=== PATIENT | female | born 1950 | race Caucasian/White ===

== ENCOUNTER → 2017-09-17 | Outpatient (CLI) | payer MEDICARE ==
[~2017-09-17] MED LIST: ASPI-496 PO; BUSP10TA PO; CALC1CAP8 PO; CEPH-368 PO; CHOL40002 PO; CITA40TA5 PO; CYAN50008 PO; CYCL-259 PO; FLUT50DI NAS; FURO20TA3 PO; GABA600T2 PO; GLUC-149 PO; HYDR-3245 PO; HYDR-3307 PO; LEVO75TA5 PO; MULT-658 PO; MULT-706 PO; OMEP-110 PO; TRAZ50TA18 PO
[2017-09-17 10:08] LABS: HEMATOCRIT 40.8 % (34.6-47.8); HEMOGLOBIN 13.7 g/dL (11.7-16.4); WHITE BLOOD COUNT 7.9 x10^3/uL (3.4-10)
[2017-09-17 10:21] LABS: ASPARTATE AMINO TRANSFERASE 22 U/L (15-37); BLOOD UREA NITROGEN 13 mg/dL (7-18)
== END | disposition home or self-care (01) ==
LOC: STAR 08:44
PROVIDERS: ATTEND Neurological Surgery
DX: Z01.818 Encounter for other preprocedural examination (principal); R94.31 Abnormal electrocardiogram [ECG] [EKG]; M47.896 Other spondylosis, lumbar region; R79.1 Abnormal coagulation profile
CPT/HCPCS: 36415; 71020; 80053; 81001; 85025; 85610; 85730; 87086; 93005

== ENCOUNTER 2017-09-27 05:45 | Inpatient (IN) | payer MEDICARE ==
[~2017-09-27] VITALS: Ht 160 cm; Wt 122.1 kg
[2017-09-27] MEDS ORDERED: BUPIVACAINE/PF 0.5% ONE (06:26)
[2017-09-27] MEDS ORDERED: BUPIVACAINE 0.25% ONE (06:26)
[2017-09-27] MEDS ORDERED: BACITRACIN 50,000 UNIT ONE (06:27)
[2017-09-27] MEDS ORDERED: THROMBIN 5,000 UNIT VIAL TP ONE (06:27)
[2017-09-27] MEDS ORDERED: EPINEPHRINE 1 MG/ML, 1ML ONE (06:27)
[2017-09-27] MEDS ORDERED: LACTATED RINGERS 1,000 ML IV SCH (06:38)
[2017-09-27] MEDS ORDERED: KETAMINE 10 MG/ML, 20ML ONE (07:19)
[2017-09-27] MEDS ORDERED: FENTANYL PF 250 MCG/5ML ONE (07:20)
[2017-09-27] MEDS ORDERED: MIDAZOLAM 1 MG/ML, 2ML ONE (07:20)
[2017-09-27] MEDS ORDERED: LIDOCAINE GEL 2%, 5ML ONE (07:20)
[2017-09-27] MEDS ORDERED: PROPOFOL 10 MG/ML, 20ML ONE (07:24)
[2017-09-27] MEDS ORDERED: ONDANSETRON 2MG/ML, 2ML ONE (07:24)
[2017-09-27] MEDS ORDERED: LIDOCAINE-MPF 2% ,5ML ONE (07:24)
[2017-09-27] MEDS ORDERED: DEXAMETHASONE 4 MG/ML, 1ML ONE (07:24)
[2017-09-27] MEDS ORDERED: CEFAZOLIN 1,000 MG ONE (07:24)
[2017-09-27] MEDS ORDERED: SUCCINYLCHOLINE 20 MG/ML, 10ML ONE (07:24)
[2017-09-27] MEDS ORDERED: PHENYLEPHRINE 10 MG/ML ONE (08:01)
[2017-09-27] MEDS ORDERED: ROCURONIUM 10 MG/ML,10ML ONE (08:01)
[2017-09-27] MEDS ORDERED: hydrALAzine 20 MG/ML, 1ML IV PRN (08:30)
[2017-09-27] MEDS ORDERED: DIAZEPAM 5 MG/ML, 2ML IVPush PRN (08:30)
[2017-09-27] MEDS ORDERED: LORazepam 2 MG/ML, 1ML IVPush PRN (08:30)
[2017-09-27] MEDS ORDERED: ALBUTEROL/IPRATROPIUM 2.5MG/0.5MG, 3 ML NPPB PRN (08:30)
[2017-09-27] MEDS ORDERED: MIDAZOLAM 1 MG/ML, 2ML IV PRN (08:30)
[2017-09-27] MEDS ORDERED: LABETALOL 5MG/ML, 20ML IV PRN (08:30)
[2017-09-27] MEDS ORDERED: FENTANYL PF 100 MCG/2ML IV PRN (08:30)
[2017-09-27] MEDS ORDERED: MEPERIDINE/PF 25MG/0.5ML IVPush PRN (08:30)
[2017-09-27] MEDS ORDERED: OXYcodone 5 MG/5 ML ORAL.SOL UDC PO PRN (08:30)
[2017-09-27] MEDS ORDERED: ONDANSETRON 2MG/ML, 2ML IVPush PRN (08:30)
[2017-09-27] MEDS ORDERED: PROMETHAZINE 25 MG/ML, 1ML IV PRN (08:30)
[2017-09-27] MEDS ORDERED: ACETAMINOPHEN 325 MG TABLET PO PRN (08:30)
[2017-09-27] MEDS ORDERED: FENTANYL PF 100 MCG/2ML ONE (08:58)
[2017-09-27] MEDS ORDERED: FENTANYL PF 100 MCG/2ML EPIDPUSH ONE (09:00)
[2017-09-27] MEDS ORDERED: PROMETHAZINE 25 MG/ML, 1ML IM PRN (10:00)
[2017-09-27] MEDS ORDERED: PHARMACY MAY ADJ FOR RENAL FX MC PRN (10:00)
[2017-09-27] MEDS ORDERED: OXYcodone/APAP 5/325MG TABLET PO PRN (10:00)
[2017-09-27] MEDS ORDERED: BISACODYL 10 MG SUPP PR PRN (10:00)
[2017-09-27] MEDS ORDERED: morphine SULFATE 10 MG/ML, 1ML IVPush PRN (10:00)
[2017-09-27] MEDS ORDERED: SENNA/DOCUSATE TABLET PO PRN (10:00)
[2017-09-27] MEDS ORDERED: DIPHENHYDRAMINE 50 MG/ML, 1ML IVPush PRN (10:00)
[2017-09-27] MEDS ORDERED: HYDROmorphone 2 MG/ML, 1ML ONE (10:19)
[2017-09-27] MEDS ORDERED: OXYcodone 5 MG/5 ML ORAL.SOL UDC ONE (10:19)
[2017-09-27] MEDS ORDERED: ACETAMINOPHEN 650 MG/20.3 ML UDC ONE (10:19)
[2017-09-27] MEDS: HYDROmorphone 1 MG/ML, 1ML IV PRN ×2 (10:24→10:36)
[2017-09-27] MEDS: D5%-0.9% NACL+KCL 20MEQ 1,000 ML IV SCH (13:16)
[2017-09-27] MEDS: HYDROcodone/APAP 10/325 MG TABLET PO PRN ×3 (14:29→22:33)
[2017-09-27 15:09] VITALS: BP 126/65
[2017-09-27] MEDS: CEFAZOLIN PMX 1GM/50ML 50 ML IVPB SCH ×2 (16:46→23:55)
[2017-09-27] MEDS: GABAPENTIN 300 MG CAPSULE PO SCH ×2 (16:46→20:19)
[2017-09-27] MEDS: BUSPIRONE 10 MG TABLET PO SCH ×2 (16:46→21:55)
[2017-09-27] MEDS: CYCLOBENZAPRINE 10 MG TABLET PO PRN (16:57)
[2017-09-27 20:00] VITALS: BP 117/62
[2017-09-27] MEDS: TRAZODONE 50MG TABLET PO SCH (20:18)
[2017-09-27] MEDS: SODIUM CHLORIDE FLUSH 10ML SYR IVF SCH (20:19)
[2017-09-27] MEDS: FUROSEMIDE 20 MG TABLET PO SCH (20:19)
[2017-09-27] MEDS: OMEPRAZOLE 20 MG CAPSULE.DR PO SCH (20:19)
[2017-09-27 23:58] VITALS: BP 106/67
[2017-09-28] MEDS: CYCLOBENZAPRINE 10 MG TABLET PO PRN ×3 (01:14→17:06)
[2017-09-28] MEDS: D5%-0.9% NACL+KCL 20MEQ 1,000 ML IV SCH ×2 (01:52→12:40)
[2017-09-28 01:55] VITALS: BP 111/48
[2017-09-28] MEDS: HYDROcodone/APAP 10/325 MG TABLET PO PRN ×5 (03:06→20:00)
[2017-09-28 07:05] VITALS: BP 116/55
[2017-09-28] MEDS: LEVOTHYROXINE 75 MCG TABLET PO SCH (08:13)
[2017-09-28] MEDS: BUSPIRONE 10 MG TABLET PO SCH ×3 (08:13→20:01)
[2017-09-28] MEDS: GABAPENTIN 300 MG CAPSULE PO SCH ×3 (08:13→20:00)
[2017-09-28] MEDS: CITALOPRAM 20 MG TABLET PO SCH (08:13)
[2017-09-28] MEDS: OMEPRAZOLE 20 MG CAPSULE.DR PO SCH ×2 (08:14→20:00)
[2017-09-28] MEDS: FUROSEMIDE 20 MG TABLET PO SCH ×2 (08:14→20:01)
[2017-09-28] MEDS: SODIUM CHLORIDE FLUSH 10ML SYR IVF SCH ×2 (08:14→20:02)
[2017-09-28] MEDS: FLUTICASONE NASAL SPRAY 16GM NAS SCH (08:17)
[2017-09-28] MEDS ORDERED: FLUTICASONE PROPIONATE NAS SCH (09:00)
[2017-09-28 15:37] VITALS: BP 120/77
[2017-09-28] MEDS: ONDANSETRON 2MG/ML, 2ML IVPush PRN (16:06)
[2017-09-28 19:10] VITALS: BP 135/84
[2017-09-28] MEDS: TRAZODONE 50MG TABLET PO SCH (20:01)
[2017-09-29 00:34] VITALS: BP 141/84
[2017-09-29] MEDS: D5%-0.9% NACL+KCL 20MEQ 1,000 ML IV SCH ×2 (02:00→14:48)
[2017-09-29 02:42] VITALS: BP 141/84
[2017-09-29] MEDS: HYDROcodone/APAP 10/325 MG TABLET PO PRN ×3 (05:33→16:17)
[2017-09-29 06:53] VITALS: BP 114/74
[2017-09-29] MEDS: FLUTICASONE NASAL SPRAY 16GM NAS SCH (08:13)
[2017-09-29] MEDS: CITALOPRAM 20 MG TABLET PO SCH (08:13)
[2017-09-29] MEDS: GABAPENTIN 300 MG CAPSULE PO SCH ×3 (08:13→21:46)
[2017-09-29] MEDS: LEVOTHYROXINE 75 MCG TABLET PO SCH (08:13)
[2017-09-29] MEDS: OMEPRAZOLE 20 MG CAPSULE.DR PO SCH ×2 (08:13→21:46)
[2017-09-29] MEDS: BUSPIRONE 10 MG TABLET PO SCH ×3 (08:13→21:46)
[2017-09-29] MEDS: FUROSEMIDE 20 MG TABLET PO SCH ×2 (08:13→21:46)
[2017-09-29] MEDS: CYCLOBENZAPRINE 10 MG TABLET PO PRN (08:16)
[2017-09-29] MEDS: SODIUM CHLORIDE FLUSH 10ML SYR IVF SCH ×2 (08:16→21:47)
[2017-09-29] MEDS ORDERED: BUTALB/APAP/CAFFEINE 50MG/325MG/40MG PO PRN (09:00)
[2017-09-29 14:57] VITALS: BP 116/75
[2017-09-29 21:09] VITALS: BP 137/83
[2017-09-29] MEDS: TRAZODONE 50MG TABLET PO SCH (21:46)
[2017-09-30] MEDS: ONDANSETRON 2MG/ML, 2ML IVPush PRN ×2 (00:19→07:45)
[2017-09-30 03:34] VITALS: BP 145/84
[2017-09-30] MEDS: D5%-0.9% NACL+KCL 20MEQ 1,000 ML IV SCH ×3 (04:40→19:16)
[2017-09-30 06:44] VITALS: BP 143/83
[2017-09-30] MEDS: FUROSEMIDE 20 MG TABLET PO SCH ×2 (07:46→20:21)
[2017-09-30] MEDS: GABAPENTIN 300 MG CAPSULE PO SCH ×3 (07:46→20:21)
[2017-09-30] MEDS: FLUTICASONE NASAL SPRAY 16GM NAS SCH (07:46)
[2017-09-30] MEDS: HYDROcodone/APAP 5/325 TABLET PO PRN ×5 (07:47→21:55)
[2017-09-30] MEDS: LEVOTHYROXINE 75 MCG TABLET PO SCH (07:47)
[2017-09-30] MEDS: CITALOPRAM 20 MG TABLET PO SCH (07:47)
[2017-09-30] MEDS: OMEPRAZOLE 20 MG CAPSULE.DR PO SCH ×2 (07:47→20:20)
[2017-09-30] MEDS: BUSPIRONE 10 MG TABLET PO SCH ×3 (07:47→20:20)
[2017-09-30] MEDS: SODIUM CHLORIDE FLUSH 10ML SYR IVF SCH ×2 (07:49→20:22)
[2017-09-30] MEDS ORDERED: SCOPOLAMINE 1MG PATCH TD ONE (09:00)
[2017-09-30] MEDS ORDERED: SCOPOLAMINE PATCH, 1.5MG PATCH.TD72 TD ONE (09:00)
[2017-09-30] MEDS: ENOXAPARIN 40 MG/0.4 ML SQ SCH (09:43)
[2017-09-30 10:03] LABS: BASOPHILS # (AUTO) 0.06 x10^3/uL (0-0.1); BASOPHILS % (AUTO) 1 % (0-1); EOSINOPHILS # (AUTO) 0.03 x10^3/uL (0-0.4); EOSINOPHILS % (AUTO) 0 % (1-7); LYMPHOCYTES # (AUTO) 2.37 x10^3/uL (1-3.4); LYMPHOCYTES % (AUTO) 20 % (22-44); MD NO; MEAN CORPUSCULAR HEMOGLOBIN 29.8 pg (27.0-34.8); MEAN CORPUSCULAR HGB CONC 33.3 g/dL (32.4-35.8); MEAN CORPUSCULAR VOLUME 89.4 fL (80-100); MEAN PLATELET VOLUME 8.2 fL (7.4-10.4); MONOCYTES # (AUTO) 0.82 x10^3/uL (0.2-0.8); MONOCYTES % (AUTO) 7 % (2-9); NEUTROPHILS # (AUTO) 8.31 x10^3/uL (1.8-6.8); NEUTROPHILS % (AUTO) 72 % (42-75); PLATELET COUNT 211 x10^3/uL (130-400); RED CELL DISTRIBUTION WIDTH 13.6 % (9.6-15.2)
[2017-09-30 10:13] LABS: ANION GAP 6 mmol/L (5-15); CALCIUM 8.5 mg/dL (8.5-10.1); CHLORIDE 101 mmol/L (98-107); CREATININE 0.89 mg/dL (0.55-1.02)
[2017-09-30 10:28] LABS: CLOSTRIDIUM DIFFICILE ANTIGEN NEGATIVE; CLOSTRIDIUM DIFFICILE TOXIN NEGATIVE (Negative)
[2017-09-30] MEDS: CYCLOBENZAPRINE 10 MG TABLET PO PRN ×2 (12:42→21:55)
[2017-09-30 13:21] VITALS: BP 123/77
[2017-09-30] MEDS: TRAZODONE 50MG TABLET PO SCH (20:21)
[2017-09-30 20:26] VITALS: BP 138/84
[2017-10-01 02:15] VITALS: BP 129/76
[2017-10-01] MEDS: HYDROcodone/APAP 5/325 TABLET PO PRN ×5 (03:15→22:01)
[2017-10-01] MEDS: CYCLOBENZAPRINE 10 MG TABLET PO PRN ×2 (07:10→16:56)
[2017-10-01 07:15] VITALS: BP 137/81
[2017-10-01] MEDS: BUSPIRONE 10 MG TABLET PO SCH ×3 (07:57→22:03)
[2017-10-01] MEDS: FUROSEMIDE 20 MG TABLET PO SCH ×2 (07:57→16:57)
[2017-10-01] MEDS: OMEPRAZOLE 20 MG CAPSULE.DR PO SCH ×2 (07:58→22:04)
[2017-10-01] MEDS: LEVOTHYROXINE 75 MCG TABLET PO SCH (07:58)
[2017-10-01] MEDS: CITALOPRAM 20 MG TABLET PO SCH (07:58)
[2017-10-01] MEDS: GABAPENTIN 300 MG CAPSULE PO SCH ×3 (07:58→22:04)
[2017-10-01] MEDS: ENOXAPARIN 40 MG/0.4 ML SQ SCH (09:52)
[2017-10-01] MEDS: SODIUM CHLORIDE FLUSH 10ML SYR IVF SCH ×2 (09:53→22:03)
[2017-10-01 09:55] VITALS: BP 119/71
[2017-10-01 14:51] VITALS: BP 120/57
[2017-10-01] MEDS ORDERED: ENOX40SY4 SQ (16:19)
[2017-10-01] MEDS ORDERED: BISA10SU54 PR (16:21)
[2017-10-01] MEDS ORDERED: BUTA-177 PO (16:22)
[2017-10-01] MEDS ORDERED: CYCL5TAB PO (16:24)
[2017-10-01] MEDS ORDERED: HYDR-3237 PO (16:26)
[2017-10-01] MEDS ORDERED: ONDA4TAB7 IVPush (16:27)
[2017-10-01] MEDS ORDERED: SENN1TAB7 PO (16:29)
[2017-10-01] MEDS ORDERED: CLON0.1T PO (16:30)
[2017-10-01] MEDS ORDERED: SCOP1PAT TD (16:31)
[2017-10-01 19:42] VITALS: BP 119/45
[2017-10-01] MEDS: D5%-0.9% NACL+KCL 20MEQ 1,000 ML IV SCH (20:40)
[2017-10-01] MEDS: FLUTICASONE NASAL SPRAY 16GM NAS SCH (22:03)
[2017-10-01] MEDS: TRAZODONE 50MG TABLET PO SCH (22:04)
[2017-10-02] MEDS: CYCLOBENZAPRINE 10 MG TABLET PO PRN ×3 (01:01→18:02)
[2017-10-02 01:29] VITALS: BP 127/56
[2017-10-02] MEDS: HYDROcodone/APAP 5/325 TABLET PO PRN (02:24)
[2017-10-02 07:09] VITALS: BP 136/76
[2017-10-02 08:07] VITALS: BP 106/70
[2017-10-02] MEDS: HYDROcodone/APAP 10/325 MG TABLET PO PRN ×4 (08:09→15:54)
[2017-10-02] MEDS: BUSPIRONE 10 MG TABLET PO SCH ×2 (08:24→16:08)
[2017-10-02] MEDS: OMEPRAZOLE 20 MG CAPSULE.DR PO SCH (08:24)
[2017-10-02] MEDS: CITALOPRAM 20 MG TABLET PO SCH (08:24)
[2017-10-02] MEDS: GABAPENTIN 300 MG CAPSULE PO SCH ×2 (08:24→16:08)
[2017-10-02] MEDS: FUROSEMIDE 20 MG TABLET PO SCH ×2 (08:25→13:00)
[2017-10-02] MEDS: SODIUM CHLORIDE FLUSH 10ML SYR IVF SCH (08:36)
[2017-10-02] MEDS: FLUTICASONE NASAL SPRAY 16GM NAS SCH (09:00)
[2017-10-02] MEDS: ENOXAPARIN 40 MG/0.4 ML SQ SCH (09:00)
[2017-10-02] MEDS: LEVOTHYROXINE 75 MCG TABLET PO SCH (09:18)
[2017-10-02] MEDS: D5%-0.9% NACL+KCL 20MEQ 1,000 ML IV SCH (10:00)
[2017-10-02 12:50] VITALS: BP 106/68
== END 2017-10-02 18:08 | DRG 516 ==
LOC: ORIP 05:45 → 4NOR 11:11
PROVIDERS: ADMIT Neurological Surgery; ATTEND Neurological Surgery
PROC: 01NR0ZZ Release Sacral Nerve, Open Approach (ICD-10-PCS; 2017-09-27)
PROC: 01NB0ZZ Release Lumbar Nerve, Open Approach (ICD-10-PCS; principal; 2017-09-27 08:00)
DX: M48.062 Spinal stenosis, lumbar region with neurogenic claudication (principal); Z68.42 Body mass index [BMI] 45.0-49.9, adult; E87.6 Hypokalemia; M51.36 Other intervertebral disc degeneration, lumbar region; W19.XXXA Unspecified fall, initial encounter; M54.42 Lumbago with sciatica, left side; M54.41 Lumbago with sciatica, right side; Y93.89 Activity, other specified; Y92.89 Other specified places as the place of occurrence of the external cause; Y99.8 Other external cause status; Z88.8 Allergy status to other drugs, medicaments and biological substances; R19.7 Diarrhea, unspecified; M51.16 Intervertebral disc disorders with radiculopathy, lumbar region
CPT/HCPCS: 36415; 72100; 80048; 85025; 87324; J0171; J0690; J1100; J1170; J1650; J2250; J2405; J2704; J3010; J3490; J0330; J2270; J2370; J3480; J7120

== ENCOUNTER 2018-02-15 10:18 | Inpatient (IN) | payer MEDICARE ==
[~2018-02-15] VITALS: Ht 160 cm; Wt 119.8 kg
[~2018-02-15 10:18] MED LIST changes: +BISA10SU54 PR; +BUTA-177 PO; +CLON0.1T PO; +CYCL5TAB PO; +ENOX40SY4 SQ; +HYDR-3237 PO; +ONDA4TAB7 IVPush; +SCOP1PAT11 TD; +SENN1TAB7 PO
[2018-02-15] MEDS ORDERED: RANITIDINE PO (10:55)
[2018-02-15] MEDS ORDERED: ASPIRIN 81 MG TABLET CHEW ONE (11:29)
[2018-02-15] MEDS ORDERED: MORPHINE SULFATE 4 MG/ML, 1ML ONE (11:29)
[2018-02-15] MEDS ORDERED: ONDANSETRON ODT 4 MG ONE (11:29)
[2018-02-15] MEDS ORDERED: MORPHINE SULFATE 4 MG/ML, 1ML IVPush ONE (11:30)
[2018-02-15] MEDS ORDERED: ASPIRIN 81 MG TABLET CHEW PO ONE (11:30)
[2018-02-15] MEDS ORDERED: ONDANSETRON ODT 4 MG PO ONE (11:30)
[2018-02-15 11:33] LABS: BASOPHILS # (AUTO) 0.06 x10^3/uL (0-0.1); BASOPHILS % (AUTO) 1 % (0-1); EOSINOPHILS # (AUTO) 0.31 x10^3/uL (0-0.4); EOSINOPHILS % (AUTO) 4 % (1-7); LYMPHOCYTES # (AUTO) 3.23 x10^3/uL (1-3.4); LYMPHOCYTES % (AUTO) 40 % (22-44); MD NO; MEAN CORPUSCULAR HEMOGLOBIN 28.6 pg (27.0-34.8); MEAN CORPUSCULAR HGB CONC 33.3 g/dL (32.4-35.8); MEAN PLATELET VOLUME 8.3 fL (7.4-10.4); MONOCYTES # (AUTO) 0.61 x10^3/uL (0.2-0.8); MONOCYTES % (AUTO) 8 % (2-9); NEUTROPHILS # (AUTO) 3.79 x10^3/uL (1.8-6.8); NEUTROPHILS % (AUTO) 47 % (42-75); PLATELET COUNT 260 x10^3/uL (130-400); RED BLOOD COUNT 4.46 x10^6/uL (3.82-5.3)
[2018-02-15 11:34] LABS: ALANINE AMINOTRANSFERASE 18 U/L (12-78); ANION GAP 8 mmol/L (5-15); CHLORIDE 105 mmol/L (98-107); CREATININE 0.92 mg/dL (0.55-1.02)
[2018-02-15 11:39] LABS: ALKALINE PHOSPHATASE 125 U/L (45-117); BILIRUBIN,TOTAL 0.3 mg/dL (0.2-1.0); TOTAL PROTEIN 7.1 g/dL (6.4-8.2); TROPONIN I < 0.015 ng/mL (0.000-0.045)
[2018-02-15] MEDS ORDERED: ENALAPRILAT 1.25 MG/ML, 2ML IVPush PRN (13:30)
[2018-02-15] MEDS ORDERED: LABETALOL 5MG/ML, 20ML IVPush PRN (13:30)
[2018-02-15 15:01] VITALS: BP 143/85
[2018-02-15] MEDS: GABAPENTIN 300 MG CAPSULE PO SCH ×2 (15:38→20:23)
[2018-02-15] MEDS: BUSPIRONE 10 MG TABLET PO SCH ×2 (15:38→20:22)
[2018-02-15] MEDS: LEVOTHYROXINE 75 MCG TABLET PO SCH (15:38)
[2018-02-15] MEDS: HYDROcodone/APAP 10/325 MG TABLET PO PRN ×2 (15:38→20:22)
[2018-02-15] MEDS: ENOXAPARIN 40 MG/0.4 ML SQ SCH (15:38)
[2018-02-15] MEDS: [UNRECOGNIZED DRUG - REMARK] MC SCH ×2 (15:39→23:00)
[2018-02-15 16:10] LABS: TROPONIN I < 0.015 ng/mL (0.000-0.045)
[2018-02-15 19:17] VITALS: BP 102/64
[2018-02-15] MEDS: SENNA/DOCUSATE TABLET PO PRN (20:22)
[2018-02-15] MEDS: TRAZODONE 50MG TABLET PO PRN (20:22)
[2018-02-15] MEDS: FUROSEMIDE 20 MG TABLET PO SCH (21:00)
[2018-02-15 23:02] LABS: TROPONIN I < 0.015 ng/mL (0.000-0.045)
[2018-02-16 01:13] VITALS: BP 125/73
[2018-02-16 05:45] LABS: CHOL/HDL RATIO 4.3; LDL/HDL RATIO 2.9 (0.5-3.0)
[2018-02-16] MEDS: LEVOTHYROXINE 75 MCG TABLET PO SCH (05:46)
[2018-02-16] MEDS: ASPIRIN 81 MG TABLET EC PO SCH (05:46)
[2018-02-16] MEDS: HYDROcodone/APAP 10/325 MG TABLET PO PRN ×3 (05:46→20:25)
[2018-02-16] MEDS: FUROSEMIDE 20 MG TABLET PO SCH ×2 (08:00→16:05)
[2018-02-16] MEDS: BUSPIRONE 10 MG TABLET PO SCH ×3 (08:00→20:25)
[2018-02-16] MEDS: GABAPENTIN 300 MG CAPSULE PO SCH ×3 (08:00→20:25)
[2018-02-16] MEDS: CITALOPRAM 20 MG TABLET PO SCH (08:00)
[2018-02-16 08:03] VITALS: BP 124/75
[2018-02-16] MEDS ORDERED: TEMPLATE NON-FORMULARY MED. (Glucosam/Chond/Hyalu/Cf Borate (Move Free Joint Health Tablet PO SCH (09:00)
[2018-02-16] MEDS ORDERED: REGADENOSON 0.4 MG/5 ML SYRINGE ONE (09:02)
[2018-02-16] MEDS: FLUTICASONE NASAL SPRAY 16GM NAS SCH (09:54)
[2018-02-16 13:49] VITALS: BP 129/74
[2018-02-16] MEDS: ENOXAPARIN 40 MG/0.4 ML SQ SCH (16:06)
[2018-02-16 20:22] VITALS: BP 133/80
[2018-02-16] MEDS: TRAZODONE 50MG TABLET PO PRN (20:25)
[2018-02-16] MEDS: SENNA/DOCUSATE TABLET PO PRN (20:25)
[2018-02-17 00:29] VITALS: BP 113/69
[2018-02-17] MEDS: HYDROcodone/APAP 10/325 MG TABLET PO PRN ×3 (00:33→10:48)
[2018-02-17] MEDS: LEVOTHYROXINE 75 MCG TABLET PO SCH (06:00)
[2018-02-17] MEDS: ASPIRIN 81 MG TABLET EC PO SCH (06:09)
[2018-02-17 08:08] VITALS: BP 130/73
[2018-02-17] MEDS: FLUTICASONE NASAL SPRAY 16GM NAS SCH (08:26)
[2018-02-17] MEDS: GABAPENTIN 300 MG CAPSULE PO SCH ×2 (08:27→11:02)
[2018-02-17] MEDS: BUSPIRONE 10 MG TABLET PO SCH ×2 (08:27→11:03)
[2018-02-17] MEDS: FUROSEMIDE 20 MG TABLET PO SCH ×2 (08:27→11:02)
[2018-02-17] MEDS: CITALOPRAM 20 MG TABLET PO SCH ×2 (08:27→11:02)
== END 2018-02-17 14:09 | disposition home or self-care (01) | DRG 303 ==
LOC: ED 13:08 → EDIP 13:23 → 5SO 14:49
PROVIDERS: ADMIT Internal Medicine Pulmonary Disease; ATTEND Internal Medicine Pulmonary Disease
DX: I25.10 Atherosclerotic heart disease of native coronary artery without angina pectoris (principal); F11.20 Opioid dependence, uncomplicated; Z68.42 Body mass index [BMI] 45.0-49.9, adult; E03.9 Hypothyroidism, unspecified; E66.9 Obesity, unspecified; I10 Essential (primary) hypertension; K21.9 Gastro-esophageal reflux disease without esophagitis; R09.02 Hypoxemia; Z79.82 Long term (current) use of aspirin; Z80.0 Family history of malignant neoplasm of digestive organs; Z80.1 Family history of malignant neoplasm of trachea, bronchus and lung; Z80.8 Family history of malignant neoplasm of other organs or systems; Z82.49 Family history of ischemic heart disease and other diseases of the circulatory system; Z98.84 Bariatric surgery status; G89.29 Other chronic pain; F32.9 Major depressive disorder, single episode, unspecified; F41.9 Anxiety disorder, unspecified
CPT/HCPCS: 36415; 71045; 71275; 78452; 80053; 80061; 83880; 84484; 85025; 85379; 93005; 93017; 96374; J1650; J2785; Q0162; A9502; C9898